=== PATIENT | female | born 1950 | race Caucasian/White ===

== ENCOUNTER → 2016-06-30 | Outpatient (CLI) | payer OTHER, BC ==
[~2016-06-30] VITALS: Ht 156.2 cm; Wt 72.1 kg
[~2016-06-30] MED LIST: ALPRAZOLAM0.25 M2 PO; B COMPLETE1 EACH PO; CALCIUM 500 MG1 EACH PO; CALTRATE PLUS1 EACH PO; CLEAR EYES ITCH15 ML BOTH EYES; COZAAR50 MG PO; EFFEXOR XR75 MG PO; LAMICTAL XR50 MG PO; LAMICTAL100 MG PO; LISINOPRIL20 MG PO; LOSARTAN POTAS100 MG PO; MULTIPLE VITAM1 EAC4 PO; OMEGA 3-6-9 CO1 EACH PO; OMEGA-3 + D SO1 EACH PO; OSTERA TABLET1 EACH PO; OXYCODONE-ACET1 EACH PO; PERCOCET 5/31 TABLET PO; VENLAFAXINE HCL75 M3 PO; VITAMIN D32000 UNI1 PO; XANAX0.25 MG PO; ZOFRAN4 MG PO
== END | disposition home or self-care (01) ==
LOC: AMB 11:30
DX: K20.9 Esophagitis, unspecified (principal); K29.90 Gastroduodenitis, unspecified, without bleeding; K44.9 Diaphragmatic hernia without obstruction or gangrene; K22.4 Dyskinesia of esophagus; R10.13 Epigastric pain; Z09 Encounter for follow-up examination after completed treatment for conditions other than malignant neoplasm; D12.2 Benign neoplasm of ascending colon; Z86.010 Personal history of colon polyps; K64.9 Unspecified hemorrhoids; K63.3 Ulcer of intestine; K63.89 Other specified diseases of intestine; I10 Essential (primary) hypertension; M19.90 Unspecified osteoarthritis, unspecified site
CPT/HCPCS: 88305; 88342 TC; B4087